=== PATIENT | male | born 1960 | race Two or more races ===

== ENCOUNTER 2019-04-12 17:46 | Emergency (ER) | payer OTHER ==
[2019-04-12] MEDS ORDERED: Sodium Chloride 0.9% 1,000 ML IV ONE (18:20)
[2019-04-12 18:52] LABS: CHLORIDE,CL 104 mmol/L (98-107); SODIUM,NA 139 mmol/L (136-148)
[2019-04-12] MEDS ORDERED: ceFAZolin 2 GM in Premix Bag 1 BAG IV ONE (19:44)
[2019-04-12] MEDS ORDERED: Iopamidol 755 MG/ML 500 ML Multipack Bottle IVPUSH STA (19:48)
[2019-04-12] MEDS ORDERED: Bacitracin Oint 1 GM U/D Packet TOP ONE (20:12)
--- NOTE | 2019-04-12 20:47 | CT ---
INDICATION: Evaluate foreign body. Injury using a sledge hammer. TECHNIQUE: 100 mL Isovue-370 contrast with 70 second delay imaging. FINDINGS: Metallic foreign body within the deep superficial margin of vastus medialis, adjacent to but not definitively disrupting intramuscular vessel. Small amount of surrounding air and low attenuation edema. No hematoma. No diffuse muscle swelling. Normal bone. Roughly 13 mm long metallic density perhaps best demonstrated on the tie maker. IMPRESSION: Metallic foreign body in the vastus medialis. No vascular injury appreciated. Please note that all CT scans at this facility use dose modulation, iterative reconstruction, and/or weight-based dosing when appropriate to reduce radiation dose to as low as reasonably achievable. Dictated by Francisco Lake MD @ Apr 13 2019 7:34AM Signed by Dr. Francisco Lake @ Apr 13 2019 7:37AM
--- NOTE | 2019-04-12 21:05 | PCM.HP.2 ---
H&P History of Present Illness - General Date of Service: 04/12/19 Source of Information: Patient History Limitations: Reports: No Limitations - History of Present Illness Initial Comments - Free Text/Narative: Patient is a 59 year old [place] speaking male who presents with a piece of metal in his left medial thigh. He was at work when a sledge hammer was dropped on the ground. A piece broke off an punctured into his left medial thigh. He presented immediately to an OSH ER. His vitals were stable and he had intact pulses distally. A plain film of the femur showed a fragment of metal to be in the leg posterior-medially. He was transferred here for further workup. He denied any paresthesias, numbness or loss of motor function. He complains of pain just at the incision site. - Related Data Allergies/Adverse Reactions: Allergies Allergy/AdvReac Type Severity Reaction Status Date / Time No Known Allergies Allergy Verified 04/12/19 17:59 Home Medications: Home Meds . [No Known Home Meds] 04/12/19 [History] Past Medical History - Past Health History Medical/Surgical History: Denies Medical/Surgical History - Infectious Disease History Infectious Disease History: Reports: None Social & Family History - Family History Family Medical History: Noncontributory - Tobacco Use Smoking Status *Q: Never Smoker - Caffeine Use Caffeine Use: Reports: None - Recreational Drug Use Recreational Drug Use: No H&P Review of Systems - Review of Systems: Review Of Systems: ROS reveals no pertinent complaints other than HPI. Exam - Exam Exam: See Below - Vital Signs Vital Signs: Last Vital Signs Temp 36.7 C 04/12/19 18:00 Pulse 56 L 04/12/19 19:46 Resp 18 04/12/19 19:46 BP 128/53 L 04/12/19 19:46 Pulse Ox 98 04/12/19 19:46 Weight: 90.718 kg - Exam General: Alert, Oriented, Cooperative HEENT: Conjunctiva Clear, Mucosa Moist & [place] Neck: Supple, Trachea Midline Lungs: Clear to Auscultation, Normal Respiratory Effort Cardiovascular: Regular Rate, Regular Rhythm GI/Abdominal Exam: Soft, Non-Tender, No Distention, No Mass Extremities: Other (1 cm laceration over the middle of the medial left thigh. Swelling and a small amount of bruising around the laceration site. Intact pulses below area of injury. Tenderness only with palpation around the site. No worsening of pain with ROM. ) Peripheral Pulses: 2+: Popliteal (L), Posterior Tibial (L), Posterior Tibial (R) , Dorsalis Pedis (L), Dorsalis Pedis (R) Skin: Warm, Dry, Intact Neuro Extensive - Mental Status: Alert, Oriented x3 Psychiatric: Alert, Normal Affect, Normal Mood - Patient Data Lab Results Last 24 hrs: Laboratory Results - last 24 hr 04/12/19 04/12/19 Range/Units 18:25 18:25 WBC 8.55 (4.0-11.0) K/uL RBC 5.02 (4.50-5.90) M/uL Hgb 15.9 (13.0-17.0) g/dL Hct 45.3 (38.0-50.0) % MCV 90.2 (80.0-98.0) fL MCH 31.7 (27.0-32.0) pg MCHC 35.1 (31.0-37.0) g/dL RDW Std Deviation 44.0 (28.0-62.0) fl RDW Coeff of Hannah 14 (11.0-15.0) % Plt Count 247 (150-400) K/uL MPV 9.20 (7.40-12.00) fL Neut % (Auto) 68.5 (48.0-80.0) % Lymph % (Auto) 21.2 (16.0-40.0) % Fleming % (Auto) 8.2 (0.0-15.0) % Eos % (Auto) 1.9 (0.0-7.0) % Baso % (Auto) 0.2 (0.0-1.5) % Neut # (Auto) 5.9 H (1.4-5.7) K/uL Lymph # (Auto) 1.8 (0.6-2.4) K/uL Fleming # (Auto) 0.7 (0.0-0.8) K/uL Eos # (Auto) 0.2 (0.0-0.7) K/uL Baso # (Auto) 0.0 (0.0-0.1) K/uL Nucleated RBC % 0.0 /100WBC Nucleated RBCs # 0 K/uL Sodium 139 (136-148) mmol/L Potassium 3.9 (3.5-5.1) mmol/L Chloride 104 (98-107) mmol/L Carbon Dioxide 25.9 (21.0-32.0) mmol/L BUN 14 (7.0-18.0) mg/dL Creatinine 1.0 (0.8-1.3) mg/dL Est Cr Clr Drug Dosing 77.90 mL/min Estimated GFR (MDRD) > 60.0 ml/min Glucose 136 H (74-106) mg/dL Calcium 9.1 (8.5-10.1) mg/dL Result Diagrams: 04/12/19 18:25 04/12/19 18:25 - Problem List (1) Foreign body SNOMED Code(s): 381728257 ICD Code: JVC1035 - Status: Acute Current Visit: Yes Problem List Initiated/Reviewed/Updated: Yes Assessment/Plan Comment:: CT of the left femur shows a fragment of metal in the vastus medialis. There is no damage to surrounding structures. Patient given ancef 2 gm in ER> Wound washed out and dressed with bacitracin and gauze with an randa wrap. No need at this time for surgical exploration. If he becomes symptomatic or has signs of infection he should see an orthopedic surgeon for removal. Will discharge home with pain medications and 5 days of antibiotics. Dressing changes daily with bacitracin, and bandage as above. If he has increased pain, swelling, tenderness, warmth, erythema or fever he should be seen again right away. Follow up in my clinic in one week. No work or driving for one week.
== END 2019-04-12 21:35 | disposition home or self-care (01) ==
LOC: MW.ED 17:46 → MW.SDS 20:30 → MW.ED 21:35
DX: S71.112A Laceration without foreign body, left thigh, initial encounter (principal); W45.8XXA Other foreign body or object entering through skin, initial encounter
CPT/HCPCS: 36415; 73701; 80048; 85025; 96361; 96365; 99284; J0690; J7040; Q9967